=== PATIENT | male | born 1995 | race Caucasian/White ===

== ENCOUNTER 2022-10-04 15:35 | Emergency (ER) | payer MEDICARE, MEDICAID ==
[~2022-10-04] VITALS: Ht 180.3 cm; Wt 67.0 kg
[2022-10-04 15:39] VITALS: BP 123/80; PULSE 68; RESP 16; TEMP 98.7; O2SAT 98
== END 2022-10-04 16:59 | disposition home or self-care (01) ==
LOC: ER 15:35
DX: S01.01XD Laceration without foreign body of scalp, subsequent encounter (principal); Z48.00 Encounter for change or removal of nonsurgical wound dressing; X58.XXXD Exposure to other specified factors, subsequent encounter
CPT/HCPCS: 99281

== ENCOUNTER → 2023-05-17 | Outpatient (CLI) | payer MEDICARE, MEDICAID | END | disposition home or self-care (01) | LOC: RAD 13:18 | PROVIDERS: ATTEND Nurse Practitioner Family | DX: M48.07 Spinal stenosis, lumbosacral region (principal); M54.2 Cervicalgia; M54.50 Low back pain, unspecified | CPT/HCPCS: 72040; 72070; 72100 ==